=== PATIENT | male | born 1960 | race Two or more races ===

== ENCOUNTER 2024-08-28 20:26 | Emergency (ER) | payer OTHER ==
[~2024-08-28] VITALS: Ht 172.7 cm; Wt 102.1 kg
[2024-08-28] MEDS ORDERED: TAMS0.4C PO (21:16)
[2024-08-28] MEDS ORDERED: ZESTRIL2.5 MG (21:17)
[2024-08-28] MEDS ORDERED: LASIX20 MG (21:17)
[2024-08-29] MEDS ORDERED: KETOROLAC TROMETHAMINE 60 MG VIAL IM STA (00:39)
[2024-08-29] MEDS ORDERED: ORPHENADRINE CITRATE 30 MG/ML AMPUL IM STA (00:39)
[2024-08-29] MEDS ORDERED: NORFLEX100MG PO (00:47)
[2024-08-29] MEDS ORDERED: MELOXICAM15 MG PO (00:47)
[2024-08-29] MEDS ORDERED: ORPHENADRINE CITRATE 100 MG TABLET PO ONE (01:15)
== END 2024-08-29 01:17 ==
LOC: ER 20:28
DX: M62.838 Other muscle spasm (principal); I10 Essential (primary) hypertension